=== PATIENT | male | born 1970 | race Caucasian/White ===

== ENCOUNTER 2021-11-02 04:43 | Inpatient (IN) | payer MEDICAID, OTHER ==
[~2021-11-02] VITALS: Ht 172.7 cm; Wt 89.0 kg
[2021-11-02 06:05] LABS: Basophils # (auto) 0 10 ^3/uL (0-0.2); Basophils % (auto) 0.5 % (0.0-2.0); Eosinophils # (auto) 0 10 ^3/uL (0-0.8); Eosinophils % (auto) 0.2 % (0.0-7.0); Hematocrit 44.6 % (41.0-53.0); Hemoglobin 15.5 g/dL (13.5-17.5); Lymphocytes # (auto) 1.3 10 ^3/uL (0.4-5.4); Lymphocytes % (auto) 13.9 % (10.0-50.0); Mean Corpuscular Hgb Conc. 34.7 g/dL (32.0-36.0); Mean Corpuscular Volume 89.3 fL (80.0-100.0); Monocytes # (auto) 0.5 10 ^3/uL (0-1.3); Monocytes % (auto) 5.2 % (0.0-12.0); Neutrophils # (auto) 7.7 10 ^3/uL (1.6-8.6); Neutrophils % (auto) 80.2 % (37.0-80.0); Red Blood Cells 4.99 10^6/uL (4.5-5.90); Red Cell Distribution Width 12.4 % (11.8-14.3); White Blood Cell 9.5 10^3/uL (4.4-10.8)
[2021-11-02 06:20] LABS: Potassium 3.2 mmol/L (3.5-5.1)
[2021-11-02 06:21] LABS: Urine Bacteria NONE SEEN /hpf (None Seen); Urine Blood 3+ /uL (Negative); Urine Mucus FEW (None Seen); Urine Specific Gravity 1.016 (1.001-1.035); Urine WBC 14 /hpf (0 - 3)
[2021-11-02 06:27] LABS: Albumin 3.9 g/dL (3.4-5.0); Bilirubin, Total 0.9 mg/dL (0.2-1.0); Calcium 8.5 mg/dL (8.5-10.1); Total Protein 7.1 g/dL (6.4-8.2)
[2021-11-02] MEDS ORDERED: KETOROLAC TROMETH 30 MG/ML 1ML VIAL IV ONE (06:45)
[2021-11-02] MEDS ORDERED: ONDANSETRON HCL 4 MG/2 ML VIAL IV ONE (06:45)
[2021-11-02] MEDS ORDERED: SODIUM CHLORIDE 0.9% 1,000 ML IVB ONE (06:45)
[2021-11-02] MEDS ORDERED: POTASSIUM CHL 20 Meq TABLET PO ONE (07:30)
[2021-11-02] MEDS ORDERED: cefTRIAXone 1GM/50ML D5W 50 ML IV ONE (08:45)
[2021-11-02] MEDS ORDERED: hydrALAZINE HCL 20 MG/ML VL IV PRN (11:45)
[2021-11-02] MEDS ORDERED: MORPHINE SULFATE INJ 2 MG/ml SYRG IV PRN (11:45)
[2021-11-02] MEDS ORDERED: ONDANSETRON HCL 4 MG/2 ML VIAL IV PRN (11:45)
[2021-11-02] MEDS: SOD CHL 0.45% 1,000 ML IV SCH ×2 (12:46→19:45)
[2021-11-02 16:49] VITALS: BP 134/82
[2021-11-02 20:00] VITALS: BP 131/76
[2021-11-02 22:00] VITALS: BP 131/76
[2021-11-02] MEDS ORDERED: ACETAMINOPHEN 325 MG TAB PO PRN (23:00)
[2021-11-03 05:00] VITALS: BP 115/77
[2021-11-03] MEDS: SOD CHL 0.45% 1,000 ML IV SCH ×2 (06:46→13:15)
[2021-11-03 07:00] LABS: Basophils # (auto) 0 10 ^3/uL (0-0.2); Basophils % (auto) 0.3 % (0.0-2.0); Eosinophils # (auto) 0.2 10 ^3/uL (0-0.8); Eosinophils % (auto) 2.4 % (0.0-7.0); Hemoglobin 15.1 g/dL (13.5-17.5); Lymphocytes # (auto) 1.2 10 ^3/uL (0.4-5.4); Lymphocytes % (auto) 19.5 % (10.0-50.0); Mean Corpuscular Hemoglobin 30.7 pg (28.0-32.0); Mean Corpuscular Hgb Conc. 34.3 g/dL (32.0-36.0); Mean Corpuscular Volume 89.5 fL (80.0-100.0); Monocytes # (auto) 0.4 10 ^3/uL (0-1.3); Neutrophils # (auto) 4.5 10 ^3/uL (1.6-8.6); Neutrophils % (auto) 71.8 % (37.0-80.0); Nucleated Red Blood Cells % 0.1 %; Red Blood Cells 4.92 10^6/uL (4.5-5.90); Red Cell Distribution Width 12.6 % (11.8-14.3); White Blood Cell 6.2 10^3/uL (4.4-10.8)
[2021-11-03 07:21] LABS: Albumin 3.3 g/dL (3.4-5.0); BUN/Creatinine Ratio 14.4; Potassium 3.5 mmol/L (3.5-5.1)
[2021-11-03 08:30] VITALS: BP 132/78
[2021-11-03 09:00] VITALS: BP 132/78
[2021-11-03 13:00] VITALS: BP 119/75
[2021-11-03] MEDS: cefTRIAXone 1GM/50ML D5W 50 ML IV SCH (13:26)
[2021-11-03 17:02] VITALS: BP 143/81
[2021-11-03 20:00] VITALS: BP 132/78
[2021-11-04 01:02] VITALS: BP 144/84
[2021-11-04] MEDS: SOD CHL 0.45% 1,000 ML IV SCH ×2 (01:29→11:48)
[2021-11-04 06:00] VITALS: BP_SYST 129
[2021-11-04 06:27] LABS: Basophils # (auto) 0 10 ^3/uL (0-0.2); Basophils % (auto) 0.2 % (0.0-2.0); Eosinophils # (auto) 0.2 10 ^3/uL (0-0.8); Eosinophils % (auto) 3.2 % (0.0-7.0); Hematocrit 41.6 % (41.0-53.0); Hemoglobin 14.9 g/dL (13.5-17.5); Lymphocytes % (auto) 18.4 % (10.0-50.0); Mean Corpuscular Hemoglobin 31.9 pg (28.0-32.0); Mean Corpuscular Hgb Conc. 35.8 g/dL (32.0-36.0); Mean Corpuscular Volume 89.1 fL (80.0-100.0); Monocytes # (auto) 0.4 10 ^3/uL (0-1.3); Monocytes % (auto) 7.2 % (0.0-12.0); Neutrophils # (auto) 3.9 10 ^3/uL (1.6-8.6); Nucleated Red Blood Cells % 0.2 %; Red Blood Cells 4.67 10^6/uL (4.5-5.90); Red Cell Distribution Width 12.2 % (11.8-14.3); White Blood Cell 5.5 10^3/uL (4.4-10.8)
[2021-11-04 06:32] LABS: Calcium 8.1 mg/dL (8.5-10.1); Potassium 3.6 mmol/L (3.5-5.1)
[2021-11-04 06:35] LABS: BUN/Creatinine Ratio 16.5
[2021-11-04 07:07] VITALS: BP 135/85
[2021-11-04 08:30] VITALS: BP 148/85
[2021-11-04] MEDS: cefTRIAXone 1GM/50ML D5W 50 ML IV SCH (08:45)
[2021-11-04 09:00] VITALS: BP 148/85
[2021-11-04] MEDS ORDERED: TAMSULOSIN HYDROCHLORIDE 0.4 MG CAP PO ONE (09:30)
[2021-11-04] MEDS ORDERED: KETOROLAC TROMETH 30 MG/ML 1ML VIAL IV PRN (09:45)
[2021-11-04] MEDS ORDERED: CIPR-173 PO (12:34)
[2021-11-04] MEDS ORDERED: TRAM50TA2 PO (12:34)
[2021-11-04] MEDS ORDERED: TAM04C PO (12:44)
[2021-11-04 13:23] VITALS: BP 148/85
== END 2021-11-04 18:00 | disposition home or self-care (01) | DRG 690 ==
LOC: ER 04:43 → OVERFLOW 11:37 → WEST WING 15:31 → TELE-WESTW 23:51 → WEST WING 11-03 02:09
PROVIDERS: ADMIT Registered Nurse; ATTEND Family Medicine
DX: N13.6 Pyonephrosis (principal); N17.9 Acute kidney failure, unspecified; R31.9 Hematuria, unspecified; R80.9 Proteinuria, unspecified; E86.0 Dehydration; Z87.442 Personal history of urinary calculi; Z90.49 Acquired absence of other specified parts of digestive tract; Z83.3 Family history of diabetes mellitus; Z68.29 Body mass index [BMI] 29.0-29.9, adult; Z20.822 Contact with and (suspected) exposure to COVID-19
CPT/HCPCS: 36415; 74176; 76775; 80048; 80053; 81001; 83690; 85025; 93005; 96361; 96365; 96375; G0378; J0696; J1885; J2405

== ENCOUNTER 2021-12-01 21:42 | Inpatient (IN) | payer MEDICAID, OTHER ==
[~2021-12-01] VITALS: Ht 172.7 cm; Wt 82.6 kg
[~2021-12-01 21:42] MED LIST: CIPR-173 PO; TAM04C PO; TRAM50TA2 PO
[2021-12-01] MEDS ORDERED: CEFEPIME 1GM/ 50ML 50 ML IV ONE (23:00)
[2021-12-01] MEDS ORDERED: VANCOMYCIN 1GM/250ML 250 ML IV ONE (23:00)
[2021-12-01] MEDS ORDERED: SODIUM CHLORIDE 0.9% 500 ML IV ONE (23:00)
[2021-12-01 23:45] LABS: Basophils # (auto) 0 10 ^3/uL (0-0.2); Basophils % (auto) 0.1 % (0.0-2.0); Eosinophils # (auto) 0 10 ^3/uL (0-0.8); Hematocrit 43.7 % (41.0-53.0); Hemoglobin 14.5 g/dL (13.5-17.5); Lymphocytes # (auto) 1.1 10 ^3/uL (0.4-5.4); Mean Corpuscular Hemoglobin 30.1 pg (28.0-32.0); Mean Corpuscular Hgb Conc. 33.3 g/dL (32.0-36.0); Mean Corpuscular Volume 90.5 fL (80.0-100.0); Monocytes # (auto) 1.7 10 ^3/uL (0-1.3); Monocytes % (auto) 9.6 % (0.0-12.0); Neutrophils # (auto) 15.3 10 ^3/uL (1.6-8.6); Neutrophils % (auto) 84.3 % (37.0-80.0); Nucleated Red Blood Cells % 0.3 %; Red Blood Cells 4.83 10^6/uL (4.5-5.90); Red Cell Distribution Width 12.3 % (11.8-14.3); White Blood Cell 18.2 10^3/uL (4.4-10.8)
[2021-12-02] LABS: Albumin 3.7 g/dL (3.4-5.0); BUN/Creatinine Ratio 10.9; Calcium 8.8 mg/dL (8.5-10.1); Potassium 3.4 mmol/L (3.5-5.1)
[2021-12-02 00:03] LABS: Bilirubin, Total 1.2 mg/dL (0.2-1.0); Total Protein 7.9 g/dL (6.4-8.2)
[2021-12-02] MEDS ORDERED: ACETAMINOPHEN 325 MG TAB PO ONE (00:45)
[2021-12-02 02:03] LABS: Urine Bacteria MANY /hpf (None Seen); Urine Blood 1+ /uL (Negative); Urine Mucus FEW (None Seen); Urine WBC 192 /hpf (0 - 3); Urine WBC Clumps PRESENT /hpf (None Seen)
[2021-12-02] MEDS ORDERED: SODIUM CHLORIDE 0.9% 1,000 ML IV ONE (04:30)
[2021-12-02] MEDS ORDERED: MORPHINE SULFATE INJ 2 MG/ml SYRG IV PRN (13:15)
[2021-12-02] MEDS ORDERED: HYDROcodone-ACET 5/325MG TAB PO PRN (13:15)
[2021-12-02] MEDS: SODIUM CHLORIDE 0.9% 1,000 ML IV SCH (13:26)
[2021-12-02 17:29] VITALS: BP 137/83
[2021-12-02] MEDS: cefTRIAXone 1GM/50ML D5W 50 ML IV SCH (17:37)
[2021-12-02] MEDS: ACETAMINOPHEN 325 MG TAB PO PRN (21:26)
[2021-12-02 22:00] VITALS: BP 132/81
[2021-12-02] MEDS: METOPROLOL TARTRATE 25 MG TAB PO SCH (22:27)
[2021-12-03] MEDS: ACETAMINOPHEN 325 MG TAB PO PRN ×2 (04:49→15:15)
[2021-12-03] MEDS: SODIUM CHLORIDE 0.9% 1,000 ML IV SCH ×2 (04:49→22:35)
[2021-12-03 05:00] VITALS: BP 118/70
[2021-12-03 06:06] LABS: Basophils # (auto) 0 10 ^3/uL (0-0.2); Basophils % (auto) 0.3 % (0.0-2.0); Eosinophils # (auto) 0 10 ^3/uL (0-0.8); Hematocrit 37.3 % (41.0-53.0); Hemoglobin 12.6 g/dL (13.5-17.5); Lymphocytes # (auto) 0.8 10 ^3/uL (0.4-5.4); Lymphocytes % (auto) 5.9 % (10.0-50.0); Mean Corpuscular Hemoglobin 30.3 pg (28.0-32.0); Mean Corpuscular Hgb Conc. 33.8 g/dL (32.0-36.0); Mean Corpuscular Volume 89.6 fL (80.0-100.0); Monocytes # (auto) 1.3 10 ^3/uL (0-1.3); Monocytes % (auto) 9.3 % (0.0-12.0); Neutrophils # (auto) 11.5 10 ^3/uL (1.6-8.6); Neutrophils % (auto) 84.5 % (37.0-80.0); Red Blood Cells 4.17 10^6/uL (4.5-5.90); Red Cell Distribution Width 12.5 % (11.8-14.3); White Blood Cell 13.6 10^3/uL (4.4-10.8)
[2021-12-03 06:22] LABS: Albumin 2.7 g/dL (3.4-5.0); BUN/Creatinine Ratio 14.4; Bilirubin, Total 0.9 mg/dL (0.2-1.0); Total Protein 6.5 g/dL (6.4-8.2)
[2021-12-03 08:10] VITALS: BP 120/71
[2021-12-03] MEDS: cefTRIAXone 1GM/50ML D5W 50 ML IV SCH (08:10)
[2021-12-03 09:00] VITALS: BP 120/71
[2021-12-03] MEDS: METOPROLOL TARTRATE 25 MG TAB PO SCH ×2 (09:21→23:00)
[2021-12-03] MEDS: ENOXAPARIN SOD 40 MG/0.4 ML SYRINGE SC SCH ×2 (09:21→09:24)
[2021-12-03] MEDS ORDERED: POTASSIUM CHLORIDE 60 MEQ, LIDOCAINE 1% (LOCAL ANESTH.) 6 ML in SODIUM CHL 0.9% 500 ML IV ONE (10:15)
[2021-12-03 13:00] VITALS: BP 118/73
[2021-12-03 16:59] VITALS: BP 108/78
[2021-12-03 22:00] VITALS: BP 119/72
[2021-12-04 05:00] VITALS: BP 127/83
[2021-12-04 06:25] LABS: Basophils # (auto) 0 10 ^3/uL (0-0.2); Basophils % (auto) 0.5 % (0.0-2.0); Eosinophils # (auto) 0 10 ^3/uL (0-0.8); Eosinophils % (auto) 0.1 % (0.0-7.0); Hematocrit 41.2 % (41.0-53.0); Hemoglobin 13.9 g/dL (13.5-17.5); Lymphocytes # (auto) 1.5 10 ^3/uL (0.4-5.4); Lymphocytes % (auto) 17.5 % (10.0-50.0); Mean Corpuscular Hgb Conc. 33.7 g/dL (32.0-36.0); Mean Corpuscular Volume 91.9 fL (80.0-100.0); Monocytes # (auto) 0.8 10 ^3/uL (0-1.3); Monocytes % (auto) 9.9 % (0.0-12.0); Nucleated Red Blood Cells % 0.1 %; Red Blood Cells 4.48 10^6/uL (4.5-5.90); Red Cell Distribution Width 12.5 % (11.8-14.3); White Blood Cell 8.4 10^3/uL (4.4-10.8)
[2021-12-04 06:32] LABS: BUN/Creatinine Ratio 14.9; Calcium 8.3 mg/dL (8.5-10.1); Potassium 3.6 mmol/L (3.5-5.1)
[2021-12-04 08:20] VITALS: BP 107/71
[2021-12-04] MEDS: METOPROLOL TARTRATE 25 MG TAB PO SCH ×2 (08:54→21:26)
[2021-12-04] MEDS ORDERED: guaiFENesin-DM 100/10mg/5ml SYR PO ONE (09:45)
[2021-12-04] MEDS ORDERED: guaiFENesin-DM 100/10mg/5ml SYR PO PRN (09:45)
[2021-12-04] MEDS: ENOXAPARIN SOD 40 MG/0.4 ML SYRINGE SC SCH (10:00)
[2021-12-04] MEDS: cefTRIAXone 1GM/50ML D5W 50 ML IV SCH (10:34)
[2021-12-04 12:53] VITALS: BP 112/69
[2021-12-04 17:00] VITALS: BP 126/70
[2021-12-04] MEDS: MEROPENEM 2 GM in SODIUM CHL 0.9% 250 ML IV SCH (21:26)
[2021-12-04 22:00] VITALS: BP 112/73
[2021-12-05 05:00] VITALS: BP 124/86
[2021-12-05 05:44] LABS: Basophils # (auto) 0 10 ^3/uL (0-0.2); Basophils % (auto) 0.4 % (0.0-2.0); Eosinophils # (auto) 0 10 ^3/uL (0-0.8); Eosinophils % (auto) 0.7 % (0.0-7.0); Hematocrit 38.9 % (41.0-53.0); Hemoglobin 13.3 g/dL (13.5-17.5); Lymphocytes # (auto) 1.4 10 ^3/uL (0.4-5.4); Lymphocytes % (auto) 20.9 % (10.0-50.0); Mean Corpuscular Hemoglobin 31.1 pg (28.0-32.0); Mean Corpuscular Hgb Conc. 34.3 g/dL (32.0-36.0); Mean Corpuscular Volume 90.6 fL (80.0-100.0); Monocytes # (auto) 0.7 10 ^3/uL (0-1.3); Monocytes % (auto) 10.1 % (0.0-12.0); Neutrophils # (auto) 4.4 10 ^3/uL (1.6-8.6); Neutrophils % (auto) 67.9 % (37.0-80.0); Red Blood Cells 4.29 10^6/uL (4.5-5.90); Red Cell Distribution Width 12.2 % (11.8-14.3); White Blood Cell 6.5 10^3/uL (4.4-10.8)
[2021-12-05 05:49] LABS: BUN/Creatinine Ratio 12.9; Calcium 8.3 mg/dL (8.5-10.1); Potassium 3.3 mmol/L (3.5-5.1)
[2021-12-05] MEDS: MEROPENEM 2 GM in SODIUM CHL 0.9% 250 ML IV SCH ×3 (05:55→22:29)
[2021-12-05 09:00] VITALS: BP 122/75
[2021-12-05] MEDS: ENOXAPARIN SOD 40 MG/0.4 ML SYRINGE SC SCH (10:42)
[2021-12-05] MEDS: METOPROLOL TARTRATE 25 MG TAB PO SCH ×2 (10:43→22:29)
[2021-12-05 12:57] VITALS: BP 124/72
[2021-12-05 17:00] VITALS: BP 121/81
[2021-12-05 22:00] VITALS: BP 121/75
[2021-12-06 04:53] VITALS: BP 130/72
[2021-12-06 06:02] LABS: Basophils # (auto) 0 10 ^3/uL (0-0.2); Basophils % (auto) 0.6 % (0.0-2.0); Eosinophils # (auto) 0.1 10 ^3/uL (0-0.8); Eosinophils % (auto) 1.4 % (0.0-7.0); Hematocrit 38.2 % (41.0-53.0); Hemoglobin 12.9 g/dL (13.5-17.5); Lymphocytes # (auto) 1.3 10 ^3/uL (0.4-5.4); Lymphocytes % (auto) 20.5 % (10.0-50.0); Mean Corpuscular Hemoglobin 30.6 pg (28.0-32.0); Mean Corpuscular Hgb Conc. 33.9 g/dL (32.0-36.0); Mean Corpuscular Volume 90.3 fL (80.0-100.0); Monocytes # (auto) 0.7 10 ^3/uL (0-1.3); Monocytes % (auto) 11.5 % (0.0-12.0); Neutrophils # (auto) 4.2 10 ^3/uL (1.6-8.6); Red Blood Cells 4.23 10^6/uL (4.5-5.90); Red Cell Distribution Width 12.2 % (11.8-14.3); White Blood Cell 6.3 10^3/uL (4.4-10.8)
[2021-12-06] MEDS: MEROPENEM 2 GM in SODIUM CHL 0.9% 250 ML IV SCH ×3 (06:20→22:10)
[2021-12-06 06:22] LABS: BUN/Creatinine Ratio 11.8; Calcium 8.3 mg/dL (8.5-10.1); Potassium 3.7 mmol/L (3.5-5.1)
[2021-12-06] MEDS: ENOXAPARIN SOD 40 MG/0.4 ML SYRINGE SC SCH (08:48)
[2021-12-06] MEDS: METOPROLOL TARTRATE 25 MG TAB PO SCH ×2 (08:48→22:09)
[2021-12-06 09:00] VITALS: BP 120/71
[2021-12-06 22:05] VITALS: BP 132/83
[2021-12-07 05:00] VITALS: BP 126/79
[2021-12-07] MEDS: MEROPENEM 2 GM in SODIUM CHL 0.9% 250 ML IV SCH ×3 (06:54→21:20)
[2021-12-07] MEDS: METOPROLOL TARTRATE 25 MG TAB PO SCH ×2 (08:29→21:48)
[2021-12-07] MEDS: ENOXAPARIN SOD 40 MG/0.4 ML SYRINGE SC SCH (08:29)
[2021-12-07 09:00] VITALS: BP 119/73
[2021-12-07 13:00] VITALS: BP 119/82
[2021-12-07 17:00] VITALS: BP 124/74
[2021-12-07 22:00] VITALS: BP 121/74
[2021-12-08 05:01] VITALS: BP 123/82
[2021-12-08] MEDS: MEROPENEM 2 GM in SODIUM CHL 0.9% 250 ML IV SCH ×3 (06:14→22:57)
[2021-12-08 09:00] VITALS: BP_SYST 115; BP_SYST 96; BP_DIAS 50; BP_DIAS 73
[2021-12-08] MEDS: ENOXAPARIN SOD 40 MG/0.4 ML SYRINGE SC SCH (09:21)
[2021-12-08] MEDS: METOPROLOL TARTRATE 25 MG TAB PO SCH ×2 (09:22→22:57)
[2021-12-08 13:10] VITALS: BP 96/50
[2021-12-08 17:00] VITALS: BP 114/75
[2021-12-08 22:00] VITALS: BP 116/78
[2021-12-09 05:00] VITALS: BP 113/71
[2021-12-09 05:31] LABS: Basophils # (auto) 0.1 10 ^3/uL (0-0.2); Basophils % (auto) 0.8 % (0.0-2.0); Eosinophils # (auto) 0.1 10 ^3/uL (0-0.8); Eosinophils % (auto) 1.2 % (0.0-7.0); Hematocrit 41.3 % (41.0-53.0); Hemoglobin 13.8 g/dL (13.5-17.5); Lymphocytes # (auto) 1.8 10 ^3/uL (0.4-5.4); Mean Corpuscular Hemoglobin 30.1 pg (28.0-32.0); Mean Corpuscular Hgb Conc. 33.4 g/dL (32.0-36.0); Mean Corpuscular Volume 90.2 fL (80.0-100.0); Monocytes # (auto) 0.7 10 ^3/uL (0-1.3); Monocytes % (auto) 10.9 % (0.0-12.0); Neutrophils % (auto) 60.1 % (37.0-80.0); Red Blood Cells 4.58 10^6/uL (4.5-5.90); Red Cell Distribution Width 12.5 % (11.8-14.3); White Blood Cell 6.6 10^3/uL (4.4-10.8)
[2021-12-09 05:38] LABS: Calcium 8.9 mg/dL (8.5-10.1); Potassium 4.2 mmol/L (3.5-5.1)
[2021-12-09 05:41] LABS: BUN/Creatinine Ratio 15.2
[2021-12-09] MEDS: MEROPENEM 2 GM in SODIUM CHL 0.9% 250 ML IV SCH ×4 (06:03→22:21)
[2021-12-09 09:00] VITALS: BP 104/62
[2021-12-09] MEDS: METOPROLOL TARTRATE 25 MG TAB PO SCH ×2 (10:10→21:59)
[2021-12-09] MEDS: ENOXAPARIN SOD 40 MG/0.4 ML SYRINGE SC SCH (10:10)
[2021-12-09 13:00] VITALS: BP 102/60
[2021-12-09 17:00] VITALS: BP 111/71
[2021-12-09 22:24] VITALS: BP 118/82
[2021-12-10 04:57] VITALS: BP_SYST 128; BP_SYST 138; BP_DIAS 64; BP_DIAS 65
[2021-12-10] MEDS: MEROPENEM 2 GM in SODIUM CHL 0.9% 250 ML IV SCH (05:44)
[2021-12-10 08:00] VITALS: BP 97/69
[2021-12-10 09:00] VITALS: BP 97/69
[2021-12-10] MEDS: ENOXAPARIN SOD 40 MG/0.4 ML SYRINGE SC SCH (09:57)
[2021-12-10] MEDS: METOPROLOL TARTRATE 25 MG TAB PO SCH (09:58)
[2021-12-10] MEDS ORDERED: ERTAPENEM SOD INJ 1 GM in SODIUM CHL 0.9% 50 ML IV ONE (11:00)
[2021-12-10 13:00] VITALS: BP 102/62
[2021-12-10 13:03] VITALS: BP 107/67
== END 2021-12-10 15:13 | disposition home or self-care (01) | DRG 720 ==
LOC: ER 21:42 → OVERFLOW 12-02 13:14 → EAST 12-02 15:35
PROVIDERS: ADMIT Internal Medicine; ATTEND Internal Medicine Pulmonary Disease
PROC: 05HC33Z Insertion of Infusion Device into Left Basilic Vein, Percutaneous Approach (ICD-10-PCS; principal; 2021-12-05)
PROC: B54NZZA Ultrasonography of Left Upper Extremity Veins, Guidance (ICD-10-PCS; 2021-12-05)
DX: A41.51 Sepsis due to Escherichia coli [E. coli] (principal); I16.0 Hypertensive urgency; J98.11 Atelectasis; N39.0 Urinary tract infection, site not specified; Z83.3 Family history of diabetes mellitus; Z79.899 Other long term (current) drug therapy; Z87.442 Personal history of urinary calculi; Z16.12 Extended spectrum beta lactamase (ESBL) resistance; Z20.822 Contact with and (suspected) exposure to COVID-19
CPT/HCPCS: 36415; 71045; 74176; 80048; 80053; 81001; 83605; 85025; 87040; 87077; 87081; 87086; 87186; 93005; 96361; 96365; 96379; G0378; J0696; J1335; J2001